=== PATIENT | male | born 1955 | race African-American/Black ===

== ENCOUNTER 2020-03-20 18:31 | Emergency (ER) | payer OTHER | END 2020-03-20 19:46 | LOC: ERS 18:31 | DX: M62.838 Other muscle spasm (principal); J45.909 Unspecified asthma, uncomplicated; F17.210 Nicotine dependence, cigarettes, uncomplicated | CPT/HCPCS: 99283 ==

== ENCOUNTER 2020-09-25 03:07 | Emergency (ER) | payer OTHER ==
[2020-09-25] MEDS ORDERED: Acetaminophen 500 MG TAB ONE (04:39)
== END 2020-09-25 07:26 ==
LOC: ERS 03:07
DX: S06.9X9A Unspecified intracranial injury with loss of consciousness of unspecified duration, initial encounter (principal); S16.1XXA Strain of muscle, fascia and tendon at neck level, initial encounter; J45.909 Unspecified asthma, uncomplicated; E56.9 Vitamin deficiency, unspecified; F17.210 Nicotine dependence, cigarettes, uncomplicated; Z87.01 Personal history of pneumonia (recurrent); Z87.828 Personal history of other (healed) physical injury and trauma; W06.XXXA Fall from bed, initial encounter
CPT/HCPCS: 70450; 72125; 93005

== ENCOUNTER 2020-12-09 10:25 | Emergency (ER) | payer OTHER ==
[2020-12-09 11:21] LABS: Bacteria/HPF 3+ HPF (None Seen); Bilirubin Negative (Negative); Blood, Urine 1+ (Negative); Clarity Turbid (Clear); Glucose, Urine (Dipstick) Normal (Negative); Ketone, Urine Negative (Negative); Leukocyte 500 Leu/uL (Negative); Nitrite Negative (Negative); Protein, Urine (Dipstick) 50 mg/dL (Neg-Trace); Specific Gravity, Urine 1.018 (1.002-1.036); Squamous Epithelial None Seen HPF (0-3); Urobilinogen 3 mg/dL (Less than 2); WBC/HPF Greater than 50 HPF (0-3); pH, Urine 5.5 (5.0-9.0)
[2020-12-09 11:28] LABS: #Basophils 0.1 thou/uL (0.0-0.2); #Eosinphils 0.7 thou/uL (0.0-0.7); #Lymphocytes 2.9 thou/uL (1.20-3.40); #Monocytes 0.3 thou/uL (0.11-0.59); #Neutrophils 3.5 thou/uL (1.40-6.50); %Basophils 1.2 % (0.0-1.0); %Lymphocytes 39.1 % (21.0-51.0); %Monocytes 3.7 % (0.0-10.0); Hemoglobin 14.7 g/dL (14.0-18.0); Mean Corpuscular HGB CONC 33.2 g/dL (32.0-36.0); Mean Corpuscular Hemoglobin 31.7 pg (27.0-31.0); Mean Corpuscular Volume 95.7 fL (78.0-98.0); Mean Platelet Volume 8.2 fL (7.4-10.4); Platelet Count 347 thou/uL (130-400); RBC Distribution Width 12.5 % (11.5-14.5); Red Blood Cell (RBC) Count 4.63 mill/uL (4.70-6.10); White Blood Cell (WBC) Count 7.5 thou/uL (4.8-10.8)
[2020-12-09] MEDS ORDERED: cefTRIAXone\\ROCEPHIN 2 GM VIAL ONE (12:01)
[2020-12-09 12:05] LABS: ALT (SGPT) 52 U/L (8-55); AST (SGOT) 46 U/L (5-34); Albumin 3.4 g/dL (3.4-4.8); Alkaline Phosphatase 72 U/L (40-110); Anion Gap 11 mmol/L (10-20); BUN (Urea Nitrogen) 17 mg/dL (8.4-25.7); Bilirubin, Total 0.5 mg/dL (0.2-1.2); Calc. Creatinine Clearance 0 mL/min (70-130); Calcium 9.6 mg/dL (7.8-10.44); Carbon Dioxide 25 mmol/L (23-31); Chloride 108 mmol/L (98-107); Globulin 4.7 g/dL (2.4-3.5); Glucose 103 mg/dL (80-115); Potassium 4.2 mmol/L (3.5-5.1); Protein, Total 8.1 g/dL (5.8-8.1); Sodium 140 mmol/L (136-145)
== END 2020-12-09 12:30 | disposition home or self-care (01) ==
LOC: ERS 10:25
DX: N39.0 Urinary tract infection, site not specified (principal); R41.0 Disorientation, unspecified; J45.909 Unspecified asthma, uncomplicated; Z87.01 Personal history of pneumonia (recurrent); Z86.16 Personal history of COVID-19; Z79.82 Long term (current) use of aspirin; Z79.899 Other long term (current) drug therapy
CPT/HCPCS: 70450; 71045; 80053; 81003; 81015; 84484; 85025; 87077; 87086; 87186; 93005; 96365; J0696

== ENCOUNTER 2020-12-23 16:17 | Inpatient (IN) | payer OTHER ==
[2020-12-23 17:37] LABS: #Basophils 0.1 thou/uL (0.0-0.2); #Eosinphils 0.8 thou/uL (0.0-0.7); #Lymphocytes 4.2 thou/uL (1.20-3.40); #Monocytes 0.8 thou/uL (0.11-0.59); #Neutrophils 4.9 thou/uL (1.40-6.50); %Eosinophils 7.6 % (0.0-10.0); %Lymphocytes 38.7 % (21.0-51.0); %Monocytes 7.3 % (0.0-10.0); %Neutrophils 45.4 % (42.0-75.0); Hemoglobin 14.1 g/dL (14.0-18.0); Mean Corpuscular HGB CONC 32.8 g/dL (32.0-36.0); Mean Corpuscular Hemoglobin 31.4 pg (27.0-31.0); Mean Corpuscular Volume 95.7 fL (78.0-98.0); Platelet Count 308 thou/uL (130-400); RBC Distribution Width 13.1 % (11.5-14.5); White Blood Cell (WBC) Count 10.7 thou/uL (4.8-10.8)
[2020-12-23 17:41] LABS: Bacteria/HPF 4+ HPF (None Seen); Bilirubin Negative (Negative); Blood, Urine 1+ (Negative); Clarity Turbid (Clear); Glucose, Urine (Dipstick) Normal (Negative); Ketone, Urine Negative (Negative); Leukocyte 500 Leu/uL (Negative); Nitrite Negative (Negative); Protein, Urine (Dipstick) 70 mg/dL (Neg-Trace); Specific Gravity, Urine 1.016 (1.002-1.036); Squamous Epithelial 0-3 HPF (0-3); WBC/HPF Greater than 50 HPF (0-3); pH, Urine 7.5 (5.0-9.0)
[2020-12-23 17:51] LABS: ALT (SGPT) 36 U/L (8-55); AST (SGOT) 29 U/L (5-34); Albumin 3.2 g/dL (3.4-4.8); Alkaline Phosphatase 69 U/L (40-110); Anion Gap 13 mmol/L (10-20); BUN (Urea Nitrogen) 15 mg/dL (8.4-25.7); Bilirubin, Total 0.4 mg/dL (0.2-1.2); Calc. Creatinine Clearance 0 mL/min (70-130); Calcium 8.9 mg/dL (7.8-10.44); Carbon Dioxide 20 mmol/L (23-31); Chloride 108 mmol/L (98-107); Globulin 4.3 g/dL (2.4-3.5); Glucose 106 mg/dL (80-115); Potassium 3.9 mmol/L (3.5-5.1); Protein, Total 7.5 g/dL (5.8-8.1); Sodium 137 mmol/L (136-145)
[2020-12-23] MEDS ORDERED: cefTRIAXone\\ROCEPHIN 1 GM VIAL ONE (18:01)
[2020-12-23] MEDS ORDERED: Vancomycin 1 GM/200 ML BAG ONE (18:40)
[2020-12-23] MEDS ORDERED: Ondansetron PF 4 MG/2 ML Vial IVP PRN (21:35)
[2020-12-23] MEDS ORDERED: Acetaminophen 325 MG TAB PO PRN (21:35)
[2020-12-24 00:13] LABS: SARS-CoV-2 NAA Rapid Test Not Detected (NotDetected)
[2020-12-24] MEDS ORDERED: Cefepime 1 GM VIAL ONE (01:51)
[2020-12-24] MEDS ORDERED: Vancomycin HCl 750 MG in Sodium Chloride 0.9% 250 ML 250 ML IVPB SCH (02:00)
[2020-12-24] MEDS: Cefepime 1 GM in Sodium Chloride 0.9% 100 ML IVPB SCH ×2 (02:25→14:24)
[2020-12-24] MEDS: Potassium Chloride 10 MEQ in Dextrose 5%-Lactated Ringers 1,000 ML IV SCH ×2 (03:09→11:51)
[2020-12-24 04:34] LABS: #Basophils 0.1 thou/uL (0.0-0.2); #Eosinphils 0.8 thou/uL (0.0-0.7); #Lymphocytes 3.8 thou/uL (1.20-3.40); #Monocytes 0.7 thou/uL (0.11-0.59); #Neutrophils 3.2 thou/uL (1.40-6.50); %Eosinophils 9.7 % (0.0-10.0); %Lymphocytes 44.1 % (21.0-51.0); %Monocytes 7.8 % (0.0-10.0); %Neutrophils 37.5 % (42.0-75.0); Hemoglobin 14.6 g/dL (14.0-18.0); Mean Corpuscular HGB CONC 34.1 g/dL (32.0-36.0); Mean Corpuscular Hemoglobin 33.1 pg (27.0-31.0); Mean Corpuscular Volume 96.9 fL (78.0-98.0); Mean Platelet Volume 8.1 fL (7.4-10.4); Platelet Count 291 thou/uL (130-400); RBC Distribution Width 13.1 % (11.5-14.5); Red Blood Cell (RBC) Count 4.43 mill/uL (4.70-6.10); White Blood Cell (WBC) Count 8.6 thou/uL (4.8-10.8)
[2020-12-24 04:57] LABS: ALT (SGPT) 37 U/L (8-55); AST (SGOT) 33 U/L (5-34); Alkaline Phosphatase 63 U/L (40-110); Anion Gap 11 mmol/L (10-20); BUN (Urea Nitrogen) 11 mg/dL (8.4-25.7); Bilirubin, Total 0.4 mg/dL (0.2-1.2); Calc. Creatinine Clearance 100 mL/min (70-130); Calcium 9.3 mg/dL (7.8-10.44); Carbon Dioxide 20 mmol/L (23-31); Chloride 111 mmol/L (98-107); Globulin 4.4 g/dL (2.4-3.5); Glucose 99 mg/dL (80-115); Protein, Total 7.4 g/dL (5.8-8.1); Sodium 138 mmol/L (136-145)
[2020-12-24] MEDS: Midodrine HCl 5 MG TAB PO SCH ×2 (09:00→20:54)
[2020-12-24] MEDS: Enoxaparin Sodium 30 MG/0.3 ML SYRINGE SC SCH (09:05)
[2020-12-24] MEDS: Aspirin 81 mg Enteric Coated Tablet PO SCH (09:05)
[2020-12-24] MEDS ORDERED: VANCOMYCIN 1.75 GM/350 ML BAG 1.75 GM in Premix Bag 1 BAG IVPB SCH ×2 (14:00→18:00)
[2020-12-25] MEDS: Potassium Chloride 10 MEQ in Dextrose 5%-Lactated Ringers 1,000 ML IV SCH ×2 (03:29→09:31)
[2020-12-25] MEDS: Cefepime 1 GM in Sodium Chloride 0.9% 100 ML IVPB SCH (03:30)
[2020-12-25 05:53] LABS: #Basophils 0.1 thou/uL (0.0-0.2); #Eosinphils 0.8 thou/uL (0.0-0.7); #Lymphocytes 3.5 thou/uL (1.20-3.40); #Monocytes 0.7 thou/uL (0.11-0.59); %Basophils 1.2 % (0.0-1.0); %Eosinophils 8.3 % (0.0-10.0); %Lymphocytes 34.1 % (21.0-51.0); %Monocytes 7.4 % (0.0-10.0); %Neutrophils 49.1 % (42.0-75.0); Hemoglobin 15.3 g/dL (14.0-18.0); Mean Corpuscular HGB CONC 33.4 g/dL (32.0-36.0); Mean Corpuscular Hemoglobin 31.6 pg (27.0-31.0); Mean Corpuscular Volume 94.5 fL (78.0-98.0); Mean Platelet Volume 8.3 fL (7.4-10.4); Platelet Count 362 thou/uL (130-400); RBC Distribution Width 12.8 % (11.5-14.5); Red Blood Cell (RBC) Count 4.84 mill/uL (4.70-6.10); White Blood Cell (WBC) Count 10.1 thou/uL (4.8-10.8)
[2020-12-25 06:18] LABS: Anion Gap 13 mmol/L (10-20); BUN (Urea Nitrogen) 8 mg/dL (8.4-25.7); Calc. Creatinine Clearance 114 mL/min (70-130); Carbon Dioxide 21 mmol/L (23-31); Chloride 106 mmol/L (98-107); Glucose 93 mg/dL (80-115); Potassium 3.7 mmol/L (3.5-5.1); Sodium 136 mmol/L (136-145)
[2020-12-25] MEDS ORDERED: Ziprasidone 20 MG VIAL IM PRN (06:20)
[2020-12-25] MEDS ORDERED: Sterile Water 10 ML VIAL FS PRN (06:26)
[2020-12-25] MEDS ORDERED: Meropenem 1 GM in Sodium Chloride 0.9% 100 ML IVPB SCH (08:00)
[2020-12-25] MEDS ORDERED: MEROPENEM 1 GM/50 ML 1 GM in Premix Bag 1 BAG IVPB SCH (08:00)
[2020-12-25] MEDS: Aspirin 81 mg Enteric Coated Tablet PO SCH (08:27)
[2020-12-25] MEDS: Enoxaparin Sodium 30 MG/0.3 ML SYRINGE SC SCH (08:27)
[2020-12-25 11:16] VITALS: BMI 22.8
[2020-12-25] MEDS ORDERED: Midodrine HCl 5 MG TAB PO SCH (11:30)
[2020-12-25] MEDS: MEROPENEM 1 GM/50 ML 1 GM in Premix Bag 1 BAG IVPB SCH ×2 (17:39→23:30)
[2020-12-25] MEDS: Midodrine HCl 5 MG TAB PO SCH ×2 (21:15→21:30)
[2020-12-26] MEDS: Potassium Chloride 10 MEQ in Dextrose 5%-Lactated Ringers 1,000 ML IV SCH (02:15)
[2020-12-26 08:06] LABS: #Basophils 0.1 thou/uL (0.0-0.2); #Eosinphils 0.7 thou/uL (0.0-0.7); #Lymphocytes 3.4 thou/uL (1.20-3.40); #Monocytes 0.7 thou/uL (0.11-0.59); #Neutrophils 4.1 thou/uL (1.40-6.50); %Basophils 1.2 % (0.0-1.0); %Eosinophils 7.6 % (0.0-10.0); %Lymphocytes 37.5 % (21.0-51.0); %Neutrophils 45.8 % (42.0-75.0); Hemoglobin 15.4 g/dL (14.0-18.0); Mean Corpuscular HGB CONC 33.3 g/dL (32.0-36.0); Mean Corpuscular Hemoglobin 31.2 pg (27.0-31.0); Mean Corpuscular Volume 93.8 fL (78.0-98.0); Mean Platelet Volume 7.7 fL (7.4-10.4); Platelet Count 352 thou/uL (130-400); RBC Distribution Width 12.8 % (11.5-14.5); Red Blood Cell (RBC) Count 4.95 mill/uL (4.70-6.10)
[2020-12-26 08:24] LABS: Phosphorus 3.1 mg/dL (2.3-4.7)
[2020-12-26 08:33] LABS: Anion Gap 12 mmol/L (10-20); BUN (Urea Nitrogen) 6 mg/dL (8.4-25.7); Calc. Creatinine Clearance 112 mL/min (70-130); Calcium 9.9 mg/dL (7.8-10.44); Carbon Dioxide 24 mmol/L (23-31); Chloride 107 mmol/L (98-107); Glucose 85 mg/dL (80-115); Magnesium 1.6 mg/dL (1.6-2.6); Potassium 3.8 mmol/L (3.5-5.1); Sodium 139 mmol/L (136-145)
[2020-12-26] MEDS: Aspirin 81 mg Enteric Coated Tablet PO SCH (08:59)
[2020-12-26] MEDS: MEROPENEM 1 GM/50 ML 1 GM in Premix Bag 1 BAG IVPB SCH (08:59)
[2020-12-26] MEDS: Midodrine HCl 5 MG TAB PO SCH (09:00)
[2020-12-26] MEDS ORDERED: Enoxaparin Sodium 40 MG/0.4 ML SYRINGE SC SCH (09:00)
[2020-12-26 15:00] VITALS: BP 155/91; TEMP 97.6
== END 2020-12-26 15:08 | DRG 698 ==
LOC: ERS 16:17 → T4-A 21:00 → ERHOLD 21:03 → T4-A 12-24 07:14 → OBSVTOIN 12-25 07:52
PROVIDERS: ADMIT Internal Medicine; ATTEND Internal Medicine
PROC: 0T2BX0Z Change Drainage Device in Bladder, External Approach (ICD-10-PCS; principal; 2020-12-25)
DX: T83.511A Infection and inflammatory reaction due to indwelling urethral catheter, initial encounter (principal); A41.51 Sepsis due to Escherichia coli [E. coli]; R65.21 Severe sepsis with septic shock; G82.50 Quadriplegia, unspecified; G92 Toxic encephalopathy; N17.9 Acute kidney failure, unspecified; E44.0 Moderate protein-calorie malnutrition; Z16.29 Resistance to other single specified antibiotic; N39.0 Urinary tract infection, site not specified; I10 Essential (primary) hypertension; L89.152 Pressure ulcer of sacral region, stage 2; N31.9 Neuromuscular dysfunction of bladder, unspecified; Z20.822 Contact with and (suspected) exposure to COVID-19; Z79.82 Long term (current) use of aspirin; Z79.899 Other long term (current) drug therapy; Z90.89 Acquired absence of other organs; Z98.890 Other specified postprocedural states; Z68.22 Body mass index [BMI] 22.0-22.9, adult
CPT/HCPCS: 36415; 36416; 80048; 80053; 81003; 81015; 83605; 83735; 84100; 85025; 87077; 87086; 87186; 93005; 96365; 96367; 96372; 96375; 96376; G0378; J0692; J0696; J1650; J2185; J3370; J3480; J3486; J3490; U0002

== ENCOUNTER 2021-03-23 20:15 | Inpatient (IN) | payer OTHER ==
[2021-03-23 23:25] LABS: #Basophils 0.1 thou/uL (0.0-0.2); #Eosinphils 0.4 thou/uL (0.0-0.7); #Lymphocytes 2.6 thou/uL (1.20-3.40); #Monocytes 0.8 thou/uL (0.11-0.59); #Neutrophils 11.5 thou/uL (1.40-6.50); %Basophils 0.4 % (0.0-1.0); %Eosinophils 2.6 % (0.0-10.0); %Lymphocytes 16.6 % (21.0-51.0); %Monocytes 5.5 % (0.0-10.0); %Neutrophils 74.9 % (42.0-75.0); Hemoglobin 15.6 g/dL (14.0-18.0); Mean Corpuscular HGB CONC 32.6 g/dL (32.0-36.0); Mean Corpuscular Hemoglobin 32.6 pg (27.0-31.0); Mean Platelet Volume 7.2 fL (7.4-10.4); Platelet Count 303 thou/uL (130-400); Red Blood Cell (RBC) Count 4.79 mill/uL (4.70-6.10); White Blood Cell (WBC) Count 15.3 thou/uL (4.8-10.8)
[2021-03-23 23:48] LABS: ALT (SGPT) 45 U/L (8-55); AST (SGOT) 43 U/L (5-34); Albumin 3.6 g/dL (3.4-4.8); Alkaline Phosphatase 60 U/L (40-110); Anion Gap 16 mmol/L (10-20); BUN (Urea Nitrogen) 27 mg/dL (8.4-25.7); Bilirubin, Total 0.5 mg/dL (0.2-1.2); Calc. Creatinine Clearance 0 mL/min (70-130); Calcium 9.3 mg/dL (7.8-10.44); Carbon Dioxide 20 mmol/L (23-31); Chloride 110 mmol/L (98-107); Globulin 5.1 g/dL (2.4-3.5); Glucose 135 mg/dL (80-115); Potassium 5.1 mmol/L (3.5-5.1); Protein, Total 8.7 g/dL (5.8-8.1); Sodium 141 mmol/L (136-145)
[2021-03-23] MEDS ORDERED: Cyclobenzaprine 10 MG TAB ONE (23:48)
[2021-03-23] MEDS ORDERED: Acetaminophen 500 MG TAB ONE (23:48)
[2021-03-24 01:51] LABS: Bacteria/HPF 3+ HPF (None Seen); Bilirubin Negative (Negative); Blood, Urine 3+ (Negative); Clarity Extra Turbid (Clear); Glucose, Urine (Dipstick) Normal (Negative); Ketone, Urine Negative (Negative); Leukocyte 500 Leu/uL (Negative); Nitrite 2+ (Negative); Protein, Urine (Dipstick) 100 mg/dL (Neg-Trace); RBC/HPF Greater than 50 HPF (0-3); Specific Gravity, Urine 1.022 (1.002-1.036); Squamous Epithelial None Seen HPF (0-3); Urobilinogen 3 mg/dL (Less than 2); WBC/HPF Greater than 50 HPF (0-3); pH, Urine 5.5 (5.0-9.0)
[2021-03-24 03:21] LABS: Troponin I Less than 0.010 ng/mL (< 0.028)
[2021-03-24 04:59] VITALS: BMI 21.0
[2021-03-24 06:23] LABS: Troponin I 0.011 ng/mL (< 0.028)
[2021-03-24] MEDS ORDERED: Bisacodyl 5 MG TAB PO PRN (09:09)
[2021-03-24] MEDS ORDERED: Benzocaine (Dental) 7 GM TUBE TOP PRN (09:09)
[2021-03-24] MEDS ORDERED: hydrALAZINE 25 MG TAB PO PRN (09:09)
[2021-03-24] MEDS ORDERED: Acetaminophen 650 MG/20.3 ML UDCUP PO PRN (09:09)
[2021-03-24] MEDS: Sodium Chloride 0.9% 1,000 ML IV SCH ×2 (09:50→20:22)
[2021-03-24] MEDS ORDERED: Meropenem 1 GM in Sodium Chloride 0.9% 100 ML IVPB SCH ×2 (10:00→14:00)
[2021-03-24] MEDS: hydrALAZINE 20 MG/ML VIAL SLOW IVP PRN (13:26)
[2021-03-24] MEDS ORDERED: Ondansetron PF 4 MG/2 ML Vial IVP PRN (15:57)
[2021-03-24 18:41] LABS: SARS-CoV-2 PCR by NAA Not Detected (NotDetected)
[2021-03-24] MEDS: Midodrine HCl 5 MG TAB PO SCH (20:23)
[2021-03-24] MEDS ORDERED: MEROPENEM 1 GM/50 ML 1 GM in Sodium Chloride 0.9% 100 ML IVPB SCH (22:00)
[2021-03-25] MEDS: hydrALAZINE 20 MG/ML VIAL SLOW IVP PRN (05:28)
[2021-03-25 06:21] LABS: #Eosinphils 0.5 thou/uL (0.0-0.7); #Lymphocytes 3.7 thou/uL (1.20-3.40); #Monocytes 0.7 thou/uL (0.11-0.59); #Neutrophils 14.4 thou/uL (1.40-6.50); %Basophils 0.1 % (0.0-1.0); %Eosinophils 2.4 % (0.0-10.0); %Lymphocytes 19.3 % (21.0-51.0); %Monocytes 3.4 % (0.0-10.0); %Neutrophils 74.8 % (42.0-75.0); Hemoglobin 14.2 g/dL (14.0-18.0); Mean Corpuscular HGB CONC 33.5 g/dL (32.0-36.0); Mean Corpuscular Hemoglobin 32.9 pg (27.0-31.0); Mean Corpuscular Volume 98.4 fL (78.0-98.0); Mean Platelet Volume 7.8 fL (7.4-10.4); Platelet Count 311 thou/uL (130-400); RBC Distribution Width 11.7 % (11.5-14.5); White Blood Cell (WBC) Count 19.3 thou/uL (4.8-10.8)
[2021-03-25 06:44] LABS: Anion Gap 16 mmol/L (10-20); BUN (Urea Nitrogen) 10 mg/dL (8.4-25.7); Calc. Creatinine Clearance 106 mL/min (70-130); Calcium 9.5 mg/dL (7.8-10.44); Carbon Dioxide 18 mmol/L (23-31); Chloride 107 mmol/L (98-107); Glucose 74 mg/dL (80-115); Potassium 4.5 mmol/L (3.5-5.1); Sodium 136 mmol/L (136-145)
[2021-03-25] MEDS: Enoxaparin Sodium 40 MG/0.4 ML SYRINGE SC SCH (08:47)
[2021-03-25] MEDS: Sodium Chloride 0.9% 1,000 ML IV SCH ×2 (08:47→17:54)
[2021-03-25] MEDS: Tamsulosin HCl 0.4 MG CAP PO SCH (08:48)
[2021-03-25] MEDS: DULoxetine 60 MG CAP PO SCH (08:48)
[2021-03-25] MEDS: Midodrine HCl 5 MG TAB PO SCH ×2 (08:48→20:49)
[2021-03-25] MEDS: Aspirin 81 mg Enteric Coated Tablet PO SCH (08:48)
[2021-03-25] MEDS: Famotidine 20 MG TAB PO SCH (08:48)
[2021-03-25] MEDS: Meropenem 1 GM in Sodium Chloride 0.9% 100 ML IVPB SCH ×2 (09:56→17:53)
[2021-03-25] MEDS ORDERED: Meropenem 1 GM in Sodium Chloride 0.9% 100 ML IVPB SCH (10:00)
[2021-03-25] MEDS: Acetaminophen 325 MG TAB PO PRN (20:49)
[2021-03-26] MEDS: Meropenem 1 GM in Sodium Chloride 0.9% 100 ML IVPB SCH ×3 (00:54→17:04)
[2021-03-26 05:13] LABS: Anion Gap 16 mmol/L (10-20); BUN (Urea Nitrogen) 8 mg/dL (8.4-25.7); Calc. Creatinine Clearance 106 mL/min (70-130); Calcium 8.9 mg/dL (7.8-10.44); Carbon Dioxide 20 mmol/L (23-31); Chloride 107 mmol/L (98-107); Glucose 88 mg/dL (80-115); Potassium 4.7 mmol/L (3.5-5.1); Sodium 138 mmol/L (136-145)
[2021-03-26 05:42] LABS: Band 1 % (5-11); Eosinophils 3 % (0-10); Hemoglobin 13.7 g/dL (14.0-18.0); Lymphocytes 34 % (21-51); MDiff Complete? YES; Mean Corpuscular HGB CONC 32.6 g/dL (32.0-36.0); Mean Corpuscular Hemoglobin 31.9 pg (27.0-31.0); Mean Corpuscular Volume 97.8 fL (78.0-98.0); Mean Platelet Volume 7.6 fL (7.4-10.4); Monocytes 4 % (0-10); Neutrophil 56 % (42-75); Platelet Count 294 thou/uL (130-400); Platelet Morphology Comment Appears Adequate; RBC Distribution Width 11.8 % (11.5-14.5); RBC Morphology Normal; White Blood Cell (WBC) Count 10.7 thou/uL (4.8-10.8)
[2021-03-26] MEDS: Sodium Chloride 0.9% 1,000 ML IV SCH (05:51)
[2021-03-26] MEDS: Enoxaparin Sodium 40 MG/0.4 ML SYRINGE SC SCH (09:40)
[2021-03-26] MEDS: Famotidine 20 MG TAB PO SCH (09:41)
[2021-03-26] MEDS: Tamsulosin HCl 0.4 MG CAP PO SCH (09:41)
[2021-03-26] MEDS: DULoxetine 60 MG CAP PO SCH (09:41)
[2021-03-26] MEDS: Aspirin 81 mg Enteric Coated Tablet PO SCH (09:41)
[2021-03-26] MEDS: Midodrine HCl 5 MG TAB PO SCH ×2 (09:42→20:39)
[2021-03-27] MEDS: Meropenem 1 GM in Sodium Chloride 0.9% 100 ML IVPB SCH ×3 (01:09→17:22)
[2021-03-27 04:42] LABS: #Basophils 0.1 thou/uL (0.0-0.2); #Eosinphils 0.9 thou/uL (0.0-0.7); #Lymphocytes 3.1 thou/uL (1.20-3.40); #Monocytes 0.6 thou/uL (0.11-0.59); %Basophils 0.6 % (0.0-1.0); %Eosinophils 9.2 % (0.0-10.0); %Lymphocytes 31.6 % (21.0-51.0); %Monocytes 6.6 % (0.0-10.0); %Neutrophils 52.1 % (42.0-75.0); Hemoglobin 13.5 g/dL (14.0-18.0); Mean Corpuscular HGB CONC 34.1 g/dL (32.0-36.0); Mean Corpuscular Hemoglobin 32.8 pg (27.0-31.0); Mean Corpuscular Volume 96.4 fL (78.0-98.0); Mean Platelet Volume 7.3 fL (7.4-10.4); Platelet Count 360 thou/uL (130-400); RBC Distribution Width 11.8 % (11.5-14.5); White Blood Cell (WBC) Count 9.7 thou/uL (4.8-10.8)
[2021-03-27 05:06] LABS: Anion Gap 12 mmol/L (10-20); BUN (Urea Nitrogen) 8 mg/dL (8.4-25.7); CRP (Inflammatory) 1.65 mg/dL (= or < 0.5); Calc. Creatinine Clearance 113 mL/min (70-130); Calcium 9.1 mg/dL (7.8-10.44); Carbon Dioxide 24 mmol/L (23-31); Chloride 106 mmol/L (98-107); Glucose 82 mg/dL (80-115); Sodium 139 mmol/L (136-145)
[2021-03-27] MEDS ORDERED: Potassium Chloride 20 MEQ TAB PO SCH (08:00)
[2021-03-27] MEDS: Enoxaparin Sodium 40 MG/0.4 ML SYRINGE SC SCH (09:30)
[2021-03-27] MEDS: Aspirin 81 mg Enteric Coated Tablet PO SCH (09:30)
[2021-03-27] MEDS: DULoxetine 60 MG CAP PO SCH (09:30)
[2021-03-27] MEDS: Tamsulosin HCl 0.4 MG CAP PO SCH (09:30)
[2021-03-27] MEDS: Midodrine HCl 5 MG TAB PO SCH ×2 (09:30→21:57)
[2021-03-27] MEDS: Famotidine 20 MG TAB PO SCH (09:30)
[2021-03-27] MEDS: Acetaminophen 325 MG TAB PO PRN (09:33)
[2021-03-28] MEDS: Meropenem 1 GM in Sodium Chloride 0.9% 100 ML IVPB SCH ×2 (03:45→10:22)
[2021-03-28 05:02] LABS: #Eosinphils 1.1 thou/uL (0.0-0.7); #Lymphocytes 3.2 thou/uL (1.20-3.40); #Monocytes 0.7 thou/uL (0.11-0.59); #Neutrophils 5.2 thou/uL (1.40-6.50); %Basophils 0.5 % (0.0-1.0); %Eosinophils 10.6 % (0.0-10.0); %Lymphocytes 31.1 % (21.0-51.0); %Monocytes 6.5 % (0.0-10.0); %Neutrophils 51.3 % (42.0-75.0); Hemoglobin 14.3 g/dL (14.0-18.0); Mean Corpuscular HGB CONC 33.4 g/dL (32.0-36.0); Mean Corpuscular Hemoglobin 32.5 pg (27.0-31.0); Mean Corpuscular Volume 97.2 fL (78.0-98.0); Mean Platelet Volume 7.2 fL (7.4-10.4); Platelet Count 388 thou/uL (130-400); RBC Distribution Width 11.8 % (11.5-14.5); Red Blood Cell (RBC) Count 4.39 mill/uL (4.70-6.10); White Blood Cell (WBC) Count 10.2 thou/uL (4.8-10.8)
[2021-03-28 05:31] LABS: Anion Gap 11 mmol/L (10-20); BUN (Urea Nitrogen) 8 mg/dL (8.4-25.7); Calc. Creatinine Clearance 111 mL/min (70-130); Calcium 9.4 mg/dL (7.8-10.44); Carbon Dioxide 23 mmol/L (23-31); Chloride 108 mmol/L (98-107); Glucose 82 mg/dL (80-115); Potassium 3.5 mmol/L (3.5-5.1); Sodium 138 mmol/L (136-145)
[2021-03-28 08:25] VITALS: BP 148/91
[2021-03-28] MEDS: Enoxaparin Sodium 40 MG/0.4 ML SYRINGE SC SCH (10:20)
[2021-03-28] MEDS: Aspirin 81 mg Enteric Coated Tablet PO SCH (10:20)
[2021-03-28] MEDS: Famotidine 20 MG TAB PO SCH (10:21)
[2021-03-28] MEDS: DULoxetine 60 MG CAP PO SCH (10:21)
[2021-03-28] MEDS: Midodrine HCl 5 MG TAB PO SCH (10:21)
[2021-03-28] MEDS: Tamsulosin HCl 0.4 MG CAP PO SCH (10:21)
[2021-03-28 11:15] VITALS: TEMP 98.5
== END 2021-03-28 14:35 | DRG 698 ==
LOC: ERS 20:15 → 2NO 03-24 00:56
PROVIDERS: ADMIT Student in an Organized Health Care Education/Training Program; ATTEND Internal Medicine
PROC: 0T2BX0Z Change Drainage Device in Bladder, External Approach (ICD-10-PCS; principal; 2021-03-24)
DX: T83.510A Infection and inflammatory reaction due to cystostomy catheter, initial encounter (principal); A41.51 Sepsis due to Escherichia coli [E. coli]; G82.50 Quadriplegia, unspecified; N17.9 Acute kidney failure, unspecified; Z16.24 Resistance to multiple antibiotics; J45.901 Unspecified asthma with (acute) exacerbation; Z20.822 Contact with and (suspected) exposure to COVID-19; S14.12 Central cord syndrome of cervical spinal cord; N31.9 Neuromuscular dysfunction of bladder, unspecified; Y84.6 Urinary catheterization as the cause of abnormal reaction of the patient, or of later complication, without mention of misadventure at the time of the procedure; L89.152 Pressure ulcer of sacral region, stage 2
CPT/HCPCS: 36415; 70450; 71045; 80048; 80053; 81003; 81015; 83880; 84484; 85025; 85652; 86140; 87040; 87086; 93005; 94640; J0360; J1650; J2185; J3490; J7050; J7620; U0003; U0005

== ENCOUNTER 2021-04-04 12:56 | Emergency (ER) | payer OTHER ==
[2021-04-04 13:45] LABS: #Basophils 0.1 thou/uL (0.0-0.2); #Eosinphils 0.7 thou/uL (0.0-0.7); #Lymphocytes 3.3 thou/uL (1.20-3.40); #Monocytes 0.5 thou/uL (0.11-0.59); #Neutrophils 3.4 thou/uL (1.40-6.50); %Basophils 1.3 % (0.0-1.0); %Eosinophils 8.4 % (0.0-10.0); %Lymphocytes 41.2 % (21.0-51.0); %Monocytes 6.6 % (0.0-10.0); %Neutrophils 42.5 % (42.0-75.0); Hemoglobin 15.1 g/dL (14.0-18.0); Mean Corpuscular HGB CONC 33.4 g/dL (32.0-36.0); Mean Corpuscular Hemoglobin 32.3 pg (27.0-31.0); Mean Corpuscular Volume 96.5 fL (78.0-98.0); Mean Platelet Volume 7.2 fL (7.4-10.4); Platelet Count 471 thou/uL (130-400); Red Blood Cell (RBC) Count 4.68 mill/uL (4.70-6.10)
[2021-04-04 14:09] LABS: ALT (SGPT) 50 U/L (8-55); AST (SGOT) 42 U/L (5-34); Albumin 3.6 g/dL (3.4-4.8); Alkaline Phosphatase 60 U/L (40-110); Anion Gap 15 mmol/L (10-20); BUN (Urea Nitrogen) 23 mg/dL (8.4-25.7); Bilirubin, Total 0.6 mg/dL (0.2-1.2); CK (CPK) 174 U/L (30-200); Calc. Creatinine Clearance 0 mL/min (70-130); Calcium 9.8 mg/dL (7.8-10.44); Carbon Dioxide 24 mmol/L (23-31); Chloride 105 mmol/L (98-107); Globulin 4.5 g/dL (2.4-3.5); Glucose 91 mg/dL (80-115); Lipase 31 U/L (8-78); Potassium 4.4 mmol/L (3.5-5.1); Protein, Total 8.1 g/dL (5.8-8.1); Sodium 140 mmol/L (136-145)
[2021-04-04 14:32] LABS: CKMB 8.1 ng/mL (0-6.6)
[2021-04-04 15:54] LABS: Bacteria/HPF None Seen HPF (None Seen); Bilirubin Negative (Negative); Blood, Urine Trace (Negative); Clarity Clear (Clear); Glucose, Urine (Dipstick) Normal (Negative); Ketone, Urine Negative (Negative); Leukocyte Negative Leu/uL (Negative); Nitrite Negative (Negative); Protein, Urine (Dipstick) Negative (Neg-Trace); Specific Gravity, Urine 1.011 (1.002-1.036); Squamous Epithelial None Seen HPF (0-3)
[2021-04-04 15:58] LABS: Troponin I 0.014 ng/mL (< 0.028)
== END 2021-04-04 16:45 ==
LOC: ERS 12:56
DX: I95.9 Hypotension, unspecified (principal); J45.909 Unspecified asthma, uncomplicated; Z79.82 Long term (current) use of aspirin; Z79.899 Other long term (current) drug therapy
CPT/HCPCS: 36415; 71045; 80053; 81003; 81015; 82550; 82553; 83690; 84484; 85025; 87086; 93005

== ENCOUNTER 2021-04-25 03:49 | Emergency (ER) | payer OTHER ==
[2021-04-25 05:30] LABS: Bacteria/HPF None Seen HPF (None Seen); Bilirubin Negative (Negative); Blood, Urine 3+ (Negative); Clarity Turbid (Clear); Glucose, Urine (Dipstick) Normal (Negative); Ketone, Urine Negative (Negative); Leukocyte 500 Leu/uL (Negative); Nitrite Negative (Negative); Protein, Urine (Dipstick) 50 mg/dL (Neg-Trace); RBC/HPF Greater than 50 HPF (0-3); Specific Gravity, Urine 1.017 (1.002-1.036); Squamous Epithelial 0-3 HPF (0-3); WBC/HPF Greater than 50 HPF (0-3); pH, Urine 5.5 (5.0-9.0)
[2021-04-25] MEDS ORDERED: Acetaminophen 500 MG TAB ONE (05:33)
== END 2021-04-25 07:39 ==
LOC: ERS 03:49
DX: S00.83XA Contusion of other part of head, initial encounter (principal); N39.0 Urinary tract infection, site not specified; J45.909 Unspecified asthma, uncomplicated; W06.XXXA Fall from bed, initial encounter
CPT/HCPCS: 51702; 70450; 70486; 72125; 72170; 81003; 81015; 87086

== ENCOUNTER 2021-06-01 10:02 | Inpatient (IN) | payer OTHER ==
[2021-06-01] MEDS ORDERED: Norepinephrine 8 MG/0.9% NS 250 ML ONE (10:14)
[2021-06-01] MEDS ORDERED: Cefepime 2 GM VIAL ONE ×2 (10:17→10:28)
[2021-06-01] MEDS ORDERED: Vancomycin 1 GM/200 ML BAG ONE ×2 (10:17→10:28)
[2021-06-01 10:47] LABS: Actual Bicarbonate (HCO3a) 17.5 mEq/L (22-28); Analyzer IN Cardio ER; Base Excess (BEa) -8.4 mEq/L (-2.0 to +3.0); CO2 Tension 37.4 mmHg (35.0-45.0); Calcium, Ionized (arterial) 1.08 mmol/L (1.12-1.30); O2 Tension (PaO2), arterial 83.4 mmHg (> 80.0); Potassium - ABG Lab 4.96 mmol/L (3.70-5.30); pH, Arterial 7.29 (7.35-7.45)
[2021-06-01 10:49] LABS: Puncture Site RRA
[2021-06-01 11:02] LABS: ALT (SGPT) 58 U/L (8-55); AST (SGOT) 52 U/L (5-34); Albumin 3.1 g/dL (3.4-4.8); Alkaline Phosphatase 54 U/L (40-110); Anion Gap 17 mmol/L (10-20); BUN (Urea Nitrogen) 51 mg/dL (8.4-25.7); Bilirubin, Total 1.7 mg/dL (0.2-1.2); Calc. Creatinine Clearance 0 mL/min (70-130); Calcium 8.9 mg/dL (7.8-10.44); Carbon Dioxide 18 mmol/L (23-31); Chloride 107 mmol/L (98-107); Globulin 4.1 g/dL (2.4-3.5); Glucose 115 mg/dL (80-115); Potassium 5.9 mmol/L (3.5-5.1); Protein, Total 7.2 g/dL (5.8-8.1); Sodium 136 mmol/L (136-145)
[2021-06-01 11:03] LABS: Bacteria/HPF 4+ HPF (None Seen); Bilirubin 1+ (Negative); Blood, Urine 3+ (Negative); Glucose, Urine (Dipstick) 30 mg/dL (Negative); Ketone, Urine Negative (Negative); Leukocyte 500 Leu/uL (Negative); Nitrite Negative (Negative); Protein, Urine (Dipstick) 300 mg/dL (Neg-Trace); RBC/HPF Greater than 50 HPF (0-3); Specific Gravity, Urine 1.021 (1.002-1.036); Squamous Epithelial None Seen HPF (0-3); WBC/HPF Greater than 50 HPF (0-3)
[2021-06-01 11:04] LABS: Clarity Turbid (Clear)
[2021-06-01 11:53] LABS: SARS-CoV-2 NAA Rapid Test Not Detected (NotDetected)
[2021-06-01 12:41] LABS: Mean Corpuscular HGB CONC 32.9 g/dL (32.0-36.0); Mean Corpuscular Hemoglobin 32.8 pg (27.0-31.0); Mean Corpuscular Volume 99.5 fL (78.0-98.0); Mean Platelet Volume 9.5 fL (7.4-10.4); Platelet Count 278 thou/uL (130-400); RBC Distribution Width 13.4 % (11.5-14.5); Red Blood Cell (RBC) Count 4.28 mill/uL (4.70-6.10); White Blood Cell (WBC) Count 33.6 thou/uL (4.8-10.8)
[2021-06-01] MEDS ORDERED: HYDROcodone/Acetaminophen 5/325 mg Tablet PO PRN (13:07)
[2021-06-01] MEDS ORDERED: Senokot S 8.6-50 MG TAB PO PRN (13:07)
[2021-06-01 13:11] LABS: Band 31 % (5-11); Lymphocytes 6 % (21-51); MDiff Complete? YES; Macrocytosis SLIGHT = 6-15 cells (100X) (0-5/hpf); Monocytes 9 % (0-10); Neutrophil 54 % (42-75); Platelet Morphology Comment Appears Adequate; Polychromasia SLIGHT = 2-3 cells (100X) (0-2/hpf)
[2021-06-01] MEDS ORDERED: Acetaminophen 650 MG Suppository ONE (14:05)
[2021-06-01 14:16] LABS: Lactic Acid 2.7 mmol/L (0.5-2.2)
[2021-06-01] MEDS ORDERED: Sodium Chloride 0.9% 1,000 ML IV SCH (15:45)
[2021-06-01] MEDS ORDERED: Norepinephrine 8 MG/0.9% NS 250 ML IVPB SCH ×2 (16:45)
[2021-06-01] MEDS ORDERED: Meropenem 1 GM in Sodium Chloride 0.9% 100 ML IVPB SCH ×2 (17:00→22:00)
[2021-06-01 17:07] LABS: Albumin 3.1 g/dL (3.4-4.8); Anion Gap 23 mmol/L (10-20); BUN (Urea Nitrogen) 53 mg/dL (8.4-25.7); BUN/Creatinine Ratio 11.57; Calc. Creatinine Clearance 18 mL/min (70-130); Calcium 8.8 mg/dL (7.8-10.44); Carbon Dioxide 15 mmol/L (23-31); Chloride 107 mmol/L (98-107); Phosphorus 3.5 mg/dL (2.3-4.7); Potassium 6.2 mmol/L (3.5-5.1); Sodium 139 mmol/L (136-145)
[2021-06-01 17:16] LABS: Glucose 59 mg/dL (80-115)
[2021-06-01 17:42] LABS: Creatinine, Urine 71.59 mg/dL (63-166)
[2021-06-01] MEDS ORDERED: Dextrose 50% Abboject 50 ML SYRINGE SLOW IVP SCH (18:00)
[2021-06-01] MEDS ORDERED: Sodium Bicarbonate 150 MEQ in Dextrose 5% in Water 1,000 ML IV SCH (18:00)
[2021-06-01] MEDS ORDERED: Insulin Regular 300 UNITS/3 ML VIAL IVP SCH (18:00)
[2021-06-01 18:42] LABS: Anion Gap 13 mmol/L (10-20); BUN (Urea Nitrogen) 51 mg/dL (8.4-25.7); CK (CPK) 258 U/L (30-200); Calc. Creatinine Clearance 23 mL/min (70-130); Calcium 8.6 mg/dL (7.8-10.44); Carbon Dioxide 23 mmol/L (23-31); Chloride 112 mmol/L (98-107); Glucose 105 mg/dL (80-115); Potassium 5.5 mmol/L (3.5-5.1); Sodium 142 mmol/L (136-145)
[2021-06-01] MEDS ORDERED: Prevnar 13-Val Conj/PF 0.5 ML SYRINGE IM ONE (18:45)
[2021-06-01] MEDS: Acetaminophen 650 MG Suppository PR PRN (18:48)
[2021-06-01] MEDS ORDERED: Cefepime 1 GM in Sodium Chloride 0.9% 100 ML IVPB SCH (21:00)
[2021-06-01] MEDS ORDERED: VANCOMYCIN 1.25 GM/250 ML BAG 1 GM in Premix Bag 1 BAG IVPB SCH (21:00)
[2021-06-01] MEDS: Famotidine 20 MG TAB PO SCH (23:37)
[2021-06-02] MEDS: Meropenem 500 MG in Sodium Chloride 0.9% 100 ML IVPB SCH ×2 (00:05→14:23)
[2021-06-02] MEDS: Acetaminophen 650 MG Suppository PR PRN (04:08)
[2021-06-02 04:15] LABS: Anion Gap 12 mmol/L (10-20); BUN (Urea Nitrogen) 52 mg/dL (8.4-25.7); Calc. Creatinine Clearance 27 mL/min (70-130); Calcium 8.4 mg/dL (7.8-10.44); Carbon Dioxide 25 mmol/L (23-31); Chloride 108 mmol/L (98-107); Glucose 145 mg/dL (80-115); Potassium 4.6 mmol/L (3.5-5.1); Sodium 140 mmol/L (136-145)
[2021-06-02 04:18] LABS: Lactic Acid 2.9 mmol/L (0.5-2.2)
[2021-06-02 04:37] LABS: Band 27 % (5-11); Lymphocytes 5 % (21-51); MDiff Complete? YES; Mean Corpuscular Hemoglobin 32.7 pg (27.0-31.0); Mean Corpuscular Volume 99.2 fL (78.0-98.0); Mean Platelet Volume 8.2 fL (7.4-10.4); Monocytes 5 % (0-10); Neutrophil 63 % (42-75); Platelet Count 233 thou/uL (130-400); RBC Distribution Width 13.5 % (11.5-14.5); Red Blood Cell (RBC) Count 3.99 mill/uL (4.70-6.10); White Blood Cell (WBC) Count 33.6 thou/uL (4.8-10.8)
[2021-06-02] MEDS: Enoxaparin Sodium 30 MG/0.3 ML SYRINGE SC SCH (09:00)
[2021-06-02] MEDS ORDERED: Vancomycin 1.5 GRAM/300 ML BAG 1.5 GM in Premix Bag 1 BAG IVPB SCH (12:30)
[2021-06-02] MEDS: Famotidine 20 MG TAB PO SCH (19:55)
[2021-06-03] MEDS: Meropenem 500 MG in Sodium Chloride 0.9% 100 ML IVPB SCH ×2 (00:18→12:47)
[2021-06-03 08:15] LABS: Albumin 2.8 g/dL (3.4-4.8); Anion Gap 15 mmol/L (10-20); BUN (Urea Nitrogen) 52 mg/dL (8.4-25.7); BUN/Creatinine Ratio 25.62; Calc. Creatinine Clearance 40 mL/min (70-130); Calcium 8.5 mg/dL (7.8-10.44); Carbon Dioxide 25 mmol/L (23-31); Chloride 107 mmol/L (98-107); Glucose 90 mg/dL (80-115); Phosphorus 3.2 mg/dL (2.3-4.7); Sodium 143 mmol/L (136-145)
[2021-06-03 08:16] LABS: Hemoglobin 12.3 g/dL (14.0-18.0); Mean Corpuscular HGB CONC 31.8 g/dL (32.0-36.0); Mean Corpuscular Hemoglobin 31.4 pg (27.0-31.0); Mean Corpuscular Volume 98.6 fL (78.0-98.0); Mean Platelet Volume 8.9 fL (7.4-10.4); Platelet Count 206 thou/uL (130-400); RBC Distribution Width 13.4 % (11.5-14.5); Red Blood Cell (RBC) Count 3.91 mill/uL (4.70-6.10); White Blood Cell (WBC) Count 21.8 thou/uL (4.8-10.8)
[2021-06-03] MEDS: Enoxaparin Sodium 30 MG/0.3 ML SYRINGE SC SCH (08:36)
[2021-06-03] MEDS: Sodium Bicarbonate 150 MEQ in Dextrose 5% in Water 1,000 ML IV SCH ×2 (11:31→20:51)
[2021-06-03] MEDS: Acetaminophen 650 MG Suppository PR PRN ×2 (11:33→23:46)
[2021-06-03] MEDS ORDERED: VANCOMYCIN 1.25 GM/250 ML BAG 1 GM in Premix Bag 1 BAG IVPB SCH (12:00)
[2021-06-03] MEDS: cefTRIAXone\\ROCEPHIN 1 GM in Sodium Chloride 0.9% 100 ML IVPB SCH (15:03)
[2021-06-03] MEDS: Famotidine 20 MG TAB PO SCH (20:37)
[2021-06-04] MEDS: Acetaminophen 650 MG Suppository PR PRN (04:50)
[2021-06-04 05:57] LABS: Hemoglobin 12.5 g/dL (14.0-18.0); Mean Corpuscular Hemoglobin 32.4 pg (27.0-31.0); Mean Corpuscular Volume 98.3 fL (78.0-98.0); Mean Platelet Volume 8.6 fL (7.4-10.4); Platelet Count 192 thou/uL (130-400); RBC Distribution Width 13.4 % (11.5-14.5); Red Blood Cell (RBC) Count 3.85 mill/uL (4.70-6.10); White Blood Cell (WBC) Count 15.6 thou/uL (4.8-10.8)
[2021-06-04 06:27] LABS: Albumin 2.6 g/dL (3.4-4.8); Anion Gap 13 mmol/L (10-20); BUN (Urea Nitrogen) 44 mg/dL (8.4-25.7); BUN/Creatinine Ratio 27.67; Calc. Creatinine Clearance 51 mL/min (70-130); Calcium 8.3 mg/dL (7.8-10.44); Carbon Dioxide 31 mmol/L (23-31); Chloride 103 mmol/L (98-107); Glucose 113 mg/dL (80-115); Phosphorus 1.8 mg/dL (2.3-4.7); Potassium 3.4 mmol/L (3.5-5.1); Sodium 144 mmol/L (136-145)
[2021-06-04] MEDS ORDERED: Electrolyte Replacement Protocol 1 EACH FS SCH (06:45)
[2021-06-04] MEDS ORDERED: Electrolyte Replacement Protocol FS PRN (06:45)
[2021-06-04] MEDS ORDERED: Potassium Chloride 20 MEQ in Premix Bag 1 BAG IVPB SCH (07:00)
[2021-06-04] MEDS ORDERED: Potassium Phosphate 15 MMOL in Sodium Chloride 0.9% 100 ML IVPB SCH (07:30)
[2021-06-04] MEDS: Enoxaparin Sodium 30 MG/0.3 ML SYRINGE SC SCH (08:01)
[2021-06-04] MEDS: Sodium Bicarbonate 150 MEQ in Dextrose 5% in Water 1,000 ML IV SCH (08:01)
[2021-06-04] MEDS: Dextrose 5%-Lactated Ringers 1,000 ML IV SCH ×2 (10:22→18:23)
[2021-06-04 10:59] LABS: Magnesium 1.6 mg/dL (1.6-2.6)
[2021-06-04] MEDS: cefTRIAXone\\ROCEPHIN 1 GM in Sodium Chloride 0.9% 100 ML IVPB SCH (14:44)
[2021-06-04] MEDS: Famotidine 20 MG TAB PO SCH (20:18)
[2021-06-05] MEDS: Acetaminophen 650 MG Suppository PR PRN (00:19)
[2021-06-05] MEDS: Dextrose 5%-Lactated Ringers 1,000 ML IV SCH ×2 (03:45→16:53)
[2021-06-05] MEDS ORDERED: Magnesium 2 GM/50 ML(in water) 2 GM in Premix Bag 1 BAG IVPB SCH (06:15)
[2021-06-05] MEDS: Enoxaparin Sodium 40 MG/0.4 ML SYRINGE SC SCH (08:15)
[2021-06-05 08:40] LABS: Hemoglobin 12.6 g/dL (14.0-18.0); Mean Corpuscular HGB CONC 31.7 g/dL (32.0-36.0); Mean Corpuscular Hemoglobin 31.2 pg (27.0-31.0); Mean Corpuscular Volume 98.5 fL (78.0-98.0); Mean Platelet Volume 9.4 fL (7.4-10.4); Platelet Count 160 thou/uL (130-400); RBC Distribution Width 13.5 % (11.5-14.5); Red Blood Cell (RBC) Count 4.03 mill/uL (4.70-6.10); White Blood Cell (WBC) Count 16.6 thou/uL (4.8-10.8)
[2021-06-05 09:16] LABS: Phosphorus 2.2 mg/dL (2.3-4.7)
[2021-06-05] MEDS ORDERED: Potassium Phosphate 15 MMOL in Sodium Chloride 0.9% 100 ML IVPB SCH (12:45)
[2021-06-05 13:55] LABS: Albumin 2.6 g/dL (3.4-4.8)
[2021-06-05 13:56] LABS: Chloride 106 mmol/L (98-107); Potassium 3.5 mmol/L (3.5-5.1); Sodium 143 mmol/L (136-145)
[2021-06-05 13:57] LABS: Calcium 8.4 mg/dL (7.8-10.44)
[2021-06-05 13:58] LABS: Glucose 112 mg/dL (80-115)
[2021-06-05 13:59] LABS: Anion Gap 12 mmol/L (10-20); Carbon Dioxide 29 mmol/L (23-31)
[2021-06-05 14:01] LABS: Calc. Creatinine Clearance 71 mL/min (70-130); Phosphorus 2.3 mg/dL (2.3-4.7)
[2021-06-05 14:02] LABS: BUN (Urea Nitrogen) 31 mg/dL (8.4-25.7); BUN/Creatinine Ratio 25.41
[2021-06-05] MEDS ORDERED: Potassium Chloride 20 MEQ TAB PO SCH (14:30)
[2021-06-05 14:50] LABS: Anion Gap 11 mmol/L (10-20); BUN (Urea Nitrogen) 28 mg/dL (8.4-25.7); Calc. Creatinine Clearance 76 mL/min (70-130); Calcium 8.3 mg/dL (7.8-10.44); Carbon Dioxide 30 mmol/L (23-31); Chloride 105 mmol/L (98-107); Glucose 127 mg/dL (80-115); Potassium 3.3 mmol/L (3.5-5.1); Sodium 143 mmol/L (136-145)
[2021-06-05] MEDS: cefTRIAXone\\ROCEPHIN 1 GM in Sodium Chloride 0.9% 100 ML IVPB SCH (15:37)
[2021-06-05] MEDS: Acetaminophen 325 MG TAB PO PRN (18:10)
[2021-06-05] MEDS: Famotidine 20 MG TAB PO SCH (20:24)
[2021-06-05 22:28] LABS: Potassium 3.9 mmol/L (3.5-5.1)
[2021-06-06] MEDS: Dextrose 5%-Lactated Ringers 1,000 ML IV SCH (00:11)
[2021-06-06] MEDS: Acetaminophen 650 MG Suppository PR PRN (03:57)
[2021-06-06 05:54] LABS: Hemoglobin 11.8 g/dL (14.0-18.0); Mean Corpuscular HGB CONC 33.1 g/dL (32.0-36.0); Mean Corpuscular Hemoglobin 32.7 pg (27.0-31.0); Mean Corpuscular Volume 98.8 fL (78.0-98.0); Mean Platelet Volume 9.6 fL (7.4-10.4); Platelet Count 157 thou/uL (130-400); RBC Distribution Width 13.4 % (11.5-14.5); Red Blood Cell (RBC) Count 3.61 mill/uL (4.70-6.10); White Blood Cell (WBC) Count 15.5 thou/uL (4.8-10.8)
[2021-06-06 06:18] LABS: Phosphorus 1.9 mg/dL (2.3-4.7)
[2021-06-06 06:24] LABS: Anion Gap 12 mmol/L (10-20); BUN (Urea Nitrogen) 22 mg/dL (8.4-25.7); Calc. Creatinine Clearance 91 mL/min (70-130); Calcium 7.8 mg/dL (7.8-10.44); Carbon Dioxide 26 mmol/L (23-31); Chloride 105 mmol/L (98-107); Glucose 105 mg/dL (80-115); Magnesium 1.3 mg/dL (1.6-2.6); Potassium 3.5 mmol/L (3.5-5.1); Sodium 139 mmol/L (136-145)
[2021-06-06] MEDS ORDERED: Potassium Phosphate 30 MMOL in Sodium Chloride 0.9% 250 ML 250 ML IVPB SCH (07:15)
[2021-06-06] MEDS: Magnesium 2 GM/50 ML(in water) 2 GM in Premix Bag 1 BAG IVPB SCH ×2 (07:40→12:19)
[2021-06-06] MEDS: Enoxaparin Sodium 40 MG/0.4 ML SYRINGE SC SCH (07:51)
[2021-06-06] MEDS ORDERED: Potassium Chloride 20 MEQ TAB PO SCH (08:00)
[2021-06-06] MEDS ORDERED: PHOS-NAK 1 PKT PACK PO SCH (08:00)
[2021-06-06] MEDS ORDERED: Potassium Phosphate 15 MMOL in Sodium Chloride 0.9% 250 ML 250 ML IVPB SCH (11:00)
[2021-06-06] MEDS: Cefepime 2 GM in Sodium Chloride 0.9% 100 ML IVPB SCH (12:09)
[2021-06-06] MEDS ORDERED: Magnesium 2 GM/50 ML(in water) 2 GM in Premix Bag 1 BAG IVPB SCH (12:15)
[2021-06-06] MEDS: metroNIDAZOLE 500 MG in Premix Bag 1 BAG IVPB SCH ×2 (14:31→21:42)
[2021-06-06] MEDS: Famotidine 20 MG TAB PO SCH (20:32)
[2021-06-06] MEDS: Acetaminophen 325 MG TAB PO PRN (20:39)
[2021-06-06] MEDS ORDERED: Cefepime 1 GM in Sodium Chloride 0.9% 100 ML IVPB SCH (21:00)
[2021-06-07] MEDS: Cefepime 2 GM in Sodium Chloride 0.9% 100 ML IVPB SCH ×2 (00:04→13:05)
[2021-06-07] MEDS: metroNIDAZOLE 500 MG in Premix Bag 1 BAG IVPB SCH ×4 (05:57→21:30)
[2021-06-07 08:27] LABS: Hemoglobin 12.5 g/dL (14.0-18.0); Mean Corpuscular HGB CONC 31.9 g/dL (32.0-36.0); Mean Corpuscular Hemoglobin 30.9 pg (27.0-31.0); Mean Corpuscular Volume 96.8 fL (78.0-98.0); Mean Platelet Volume 9.9 fL (7.4-10.4); Platelet Count 219 thou/uL (130-400); RBC Distribution Width 13.4 % (11.5-14.5); Red Blood Cell (RBC) Count 4.06 mill/uL (4.70-6.10); White Blood Cell (WBC) Count 20.6 thou/uL (4.8-10.8)
[2021-06-07] MEDS: Enoxaparin Sodium 40 MG/0.4 ML SYRINGE SC SCH (08:41)
[2021-06-07 08:46] LABS: Phosphorus 2.2 mg/dL (2.3-4.7)
[2021-06-07 08:47] LABS: Albumin 2.7 g/dL (3.4-4.8); Anion Gap 16 mmol/L (10-20); BUN (Urea Nitrogen) 17 mg/dL (8.4-25.7); BUN/Creatinine Ratio 18.89; Calc. Creatinine Clearance 99 mL/min (70-130); Calcium 8.3 mg/dL (7.8-10.44); Carbon Dioxide 20 mmol/L (23-31); Chloride 104 mmol/L (98-107); Magnesium 1.7 mg/dL (1.6-2.6); Phosphorus 2.2 mg/dL (2.3-4.7); Potassium 3.7 mmol/L (3.5-5.1); Sodium 136 mmol/L (136-145)
[2021-06-07 08:50] LABS: Glucose 59 mg/dL (80-115)
[2021-06-07] MEDS ORDERED: Magnesium 2 GM/50 ML(in water) 2 GM in Premix Bag 1 BAG IVPB SCH (10:00)
[2021-06-07] MEDS ORDERED: Dextrose 50% Abboject 50 ML SYRINGE ONE (10:37)
[2021-06-07] MEDS: PHOS-NAK 1 PKT PACK PO SCH ×3 (10:42→21:29)
[2021-06-07] MEDS ORDERED: Labetalol HCl 100 MG/20 ML VIAL SLOW IVP PRN (11:50)
[2021-06-07] MEDS ORDERED: Amlodipine 10 MG TAB PO SCH (12:00)
[2021-06-07 13:42] VITALS: BMI 26.8
[2021-06-07] MEDS: Famotidine 20 MG TAB PO SCH ×2 (21:26→21:30)
[2021-06-08] MEDS: Cefepime 2 GM in Sodium Chloride 0.9% 100 ML IVPB SCH ×2 (02:39→10:59)
[2021-06-08 06:16] LABS: Hemoglobin 12.9 g/dL (14.0-18.0); Mean Corpuscular HGB CONC 31.9 g/dL (32.0-36.0); Mean Corpuscular Hemoglobin 31.2 pg (27.0-31.0); Mean Corpuscular Volume 97.8 fL (78.0-98.0); Mean Platelet Volume 9.1 fL (7.4-10.4); Platelet Count 283 thou/uL (130-400); RBC Distribution Width 13.5 % (11.5-14.5); Red Blood Cell (RBC) Count 4.14 mill/uL (4.70-6.10); White Blood Cell (WBC) Count 24.3 thou/uL (4.8-10.8)
[2021-06-08] MEDS: metroNIDAZOLE 500 MG in Premix Bag 1 BAG IVPB SCH ×3 (07:09→22:06)
[2021-06-08 07:35] LABS: Anion Gap 16 mmol/L (10-20); BUN (Urea Nitrogen) 14 mg/dL (8.4-25.7); Calc. Creatinine Clearance 104 mL/min (70-130); Calcium 8.5 mg/dL (7.8-10.44); Carbon Dioxide 21 mmol/L (23-31); Chloride 104 mmol/L (98-107); Glucose 77 mg/dL (80-115); Magnesium 1.5 mg/dL (1.6-2.6); Phosphorus 2.8 mg/dL (2.3-4.7); Potassium 3.5 mmol/L (3.5-5.1); Sodium 137 mmol/L (136-145)
[2021-06-08] MEDS: Enoxaparin Sodium 40 MG/0.4 ML SYRINGE SC SCH (08:12)
[2021-06-08] MEDS: PHOS-NAK 1 PKT PACK PO SCH ×2 (08:13→22:08)
[2021-06-08] MEDS: Amlodipine 10 MG TAB PO SCH (08:13)
[2021-06-08] MEDS ORDERED: Magnesium 2 GM/50 ML(in water) 2 GM in Premix Bag 1 BAG IVPB SCH (09:00)
[2021-06-08] MEDS ORDERED: Potassium Chloride 20 MEQ TAB PO SCH (09:00)
[2021-06-08 11:58] LABS: SARS-CoV-2 PCR by NAA Not Detected (NotDetected)
[2021-06-08] MEDS: Famotidine 20 MG TAB PO SCH (22:08)
[2021-06-09] MEDS: Cefepime 2 GM in Sodium Chloride 0.9% 100 ML IVPB SCH ×2 (00:08→10:26)
[2021-06-09] MEDS: metroNIDAZOLE 500 MG in Premix Bag 1 BAG IVPB SCH ×3 (06:12→21:25)
[2021-06-09] MEDS: Acetaminophen 325 MG TAB PO PRN ×2 (06:12→20:40)
[2021-06-09] MEDS: Amlodipine 10 MG TAB PO SCH (08:01)
[2021-06-09] MEDS: Enoxaparin Sodium 40 MG/0.4 ML SYRINGE SC SCH (08:01)
[2021-06-09 09:01] LABS: Hemoglobin 11.3 g/dL (14.0-18.0); Mean Corpuscular HGB CONC 33.7 g/dL (32.0-36.0); Mean Corpuscular Hemoglobin 32.5 pg (27.0-31.0); Mean Corpuscular Volume 96.5 fL (78.0-98.0); Mean Platelet Volume 8.6 fL (7.4-10.4); Platelet Count 378 thou/uL (130-400); RBC Distribution Width 13.3 % (11.5-14.5); Red Blood Cell (RBC) Count 3.47 mill/uL (4.70-6.10); White Blood Cell (WBC) Count 19.9 thou/uL (4.8-10.8)
[2021-06-09 09:13] LABS: Anion Gap 12 mmol/L (10-20); BUN (Urea Nitrogen) 11 mg/dL (8.4-25.7); Calc. Creatinine Clearance 113 mL/min (70-130); Calcium 8.2 mg/dL (7.8-10.44); Carbon Dioxide 23 mmol/L (23-31); Chloride 105 mmol/L (98-107); Glucose 75 mg/dL (80-115); Potassium 3.2 mmol/L (3.5-5.1); Sodium 137 mmol/L (136-145)
[2021-06-09 10:44] LABS: Eosinophils 5 % (0-10); Lymphocytes 15 % (21-51); MDiff Complete? YES; Monocytes 8 % (0-10); Neutrophil 71 % (42-75); Polychromasia SLIGHT = 2-3 cells (100X) (0-2/hpf); Reactive Lymphocytes 1 % (0-10)
[2021-06-09] MEDS ORDERED: Potassium Chloride 20 MEQ TAB PO SCH (11:00)
[2021-06-09] MEDS ORDERED: Dextrose 50% Abboject 50 ML SYRINGE SLOW IVP PRN (12:43)
[2021-06-09] MEDS: Famotidine 20 MG TAB PO SCH (20:00)
[2021-06-10] MEDS: Cefepime 2 GM in Sodium Chloride 0.9% 100 ML IVPB SCH ×2 (00:04→12:29)
[2021-06-10] MEDS: metroNIDAZOLE 500 MG in Premix Bag 1 BAG IVPB SCH ×3 (05:10→21:36)
[2021-06-10 07:00] LABS: Hemoglobin 11.7 g/dL (14.0-18.0); Mean Corpuscular HGB CONC 32.9 g/dL (32.0-36.0); Mean Corpuscular Hemoglobin 32.3 pg (27.0-31.0); Mean Corpuscular Volume 98.3 fL (78.0-98.0); Mean Platelet Volume 8.2 fL (7.4-10.4); Platelet Count 500 thou/uL (130-400); RBC Distribution Width 13.3 % (11.5-14.5); Red Blood Cell (RBC) Count 3.62 mill/uL (4.70-6.10)
[2021-06-10 07:06] LABS: Anion Gap 12 mmol/L (10-20); BUN (Urea Nitrogen) 8 mg/dL (8.4-25.7); Calc. Creatinine Clearance 112 mL/min (70-130); Calcium 8.4 mg/dL (7.8-10.44); Carbon Dioxide 23 mmol/L (23-31); Chloride 103 mmol/L (98-107); Glucose 82 mg/dL (80-115); Magnesium 1.4 mg/dL (1.6-2.6); Potassium 3.3 mmol/L (3.5-5.1); Sodium 135 mmol/L (136-145)
[2021-06-10] MEDS ORDERED: Potassium Chloride 20 MEQ TAB PO SCH (08:00)
[2021-06-10] MEDS: Magnesium 2 GM/50 ML(in water) 2 GM in Premix Bag 1 BAG IVPB SCH ×2 (09:08→09:54)
[2021-06-10] MEDS: Amlodipine 10 MG TAB PO SCH (09:09)
[2021-06-10] MEDS: Magnesium Oxide 400 MG TAB PO SCH (09:09)
[2021-06-10] MEDS: Enoxaparin Sodium 40 MG/0.4 ML SYRINGE SC SCH (09:09)
[2021-06-10] MEDS: Acetaminophen 325 MG TAB PO PRN (09:10)
[2021-06-10] MEDS: Famotidine 20 MG TAB PO SCH (20:51)
[2021-06-10] MEDS: Acetaminophen 650 MG Suppository PR PRN (20:54)
[2021-06-11] MEDS: Cefepime 2 GM in Sodium Chloride 0.9% 100 ML IVPB SCH (00:02)
[2021-06-11] MEDS: metroNIDAZOLE 500 MG in Premix Bag 1 BAG IVPB SCH (05:08)
[2021-06-11 05:43] LABS: Hemoglobin 11.9 g/dL (14.0-18.0); Mean Corpuscular HGB CONC 33.3 g/dL (32.0-36.0); Mean Corpuscular Hemoglobin 32.7 pg (27.0-31.0); Mean Corpuscular Volume 98.3 fL (78.0-98.0); Mean Platelet Volume 7.5 fL (7.4-10.4); Platelet Count 595 thou/uL (130-400); RBC Distribution Width 13.1 % (11.5-14.5); Red Blood Cell (RBC) Count 3.64 mill/uL (4.70-6.10); White Blood Cell (WBC) Count 17.2 thou/uL (4.8-10.8)
[2021-06-11 06:07] LABS: Anion Gap 13 mmol/L (10-20); BUN (Urea Nitrogen) 10 mg/dL (8.4-25.7); Calc. Creatinine Clearance 113 mL/min (70-130); Calcium 8.7 mg/dL (7.8-10.44); Carbon Dioxide 24 mmol/L (23-31); Chloride 105 mmol/L (98-107); Glucose 80 mg/dL (80-115); Potassium 3.8 mmol/L (3.5-5.1); Sodium 138 mmol/L (136-145)
[2021-06-11] MEDS ORDERED: Potassium Chloride 20 MEQ TAB PO SCH (08:00)
[2021-06-11] MEDS: Enoxaparin Sodium 40 MG/0.4 ML SYRINGE SC SCH (08:42)
[2021-06-11] MEDS: Magnesium Oxide 400 MG TAB PO SCH (08:42)
[2021-06-11] MEDS: Amlodipine 10 MG TAB PO SCH (09:01)
[2021-06-11] MEDS ORDERED: Sodium Chloride 0.65% Nasal 44 ML BOT EA NARE PRN (10:08)
[2021-06-11 16:03] VITALS: BP 107/77; TEMP 98.5
== END 2021-06-11 10:20 | DRG 698 ==
LOC: ERS 10:02 → CCU 12:59 → T4-A 06-02 10:56
PROVIDERS: ADMIT Hospitalist; ATTEND Internal Medicine
PROC: 3E033XZ Introduction of Vasopressor into Peripheral Vein, Percutaneous Approach (ICD-10-PCS; principal; 2021-06-01)
PROC: 3E03329 Introduction of Other Anti-infective into Peripheral Vein, Percutaneous Approach (ICD-10-PCS; 2021-06-01)
DX: T83.510A Infection and inflammatory reaction due to cystostomy catheter, initial encounter (principal); A41.50 Gram-negative sepsis, unspecified; J69.0 Pneumonitis due to inhalation of food and vomit; R65.21 Severe sepsis with septic shock; R53.2 Functional quadriplegia; G92.8 Other toxic encephalopathy; N39.0 Urinary tract infection, site not specified; N17.9 Acute kidney failure, unspecified; E44.0 Moderate protein-calorie malnutrition; Z20.822 Contact with and (suspected) exposure to COVID-19; E86.9 Volume depletion, unspecified; Y84.6 Urinary catheterization as the cause of abnormal reaction of the patient, or of later complication, without mention of misadventure at the time of the procedure; E87.5 Hyperkalemia; D53.9 Nutritional anemia, unspecified; J45.909 Unspecified asthma, uncomplicated; N31.9 Neuromuscular dysfunction of bladder, unspecified; L89.159 Pressure ulcer of sacral region, unspecified stage; E83.39 Other disorders of phosphorus metabolism; E83.42 Hypomagnesemia; E16.2 Hypoglycemia, unspecified; E87.6 Hypokalemia; Z79.82 Long term (current) use of aspirin; Z90.89 Acquired absence of other organs; Z68.26 Body mass index [BMI] 26.0-26.9, adult
CPT/HCPCS: 36415; 36416; 36556; 36600; 70450; 71045; 80048; 80053; 80069; 80202; 81003; 81015; 82550; 82570; 82805; 83036; 83605; 83735; 84100; 84145; 84156; 84300; 84540; 85025; 85027; 87040; 87077; 87086; 87149; 87186; 96365; J0692; J0696; J1650; J1815; J2185; J3370; J3475; J3480; J3490; J7050; J7070; U0003; U0005